=== PATIENT | female | born 1990 | race Caucasian/White ===

== ENCOUNTER 2019-03-29 13:01 | Inpatient (IN) | payer OTHER ==
[2019-03-29 16:16] VITALS: BMI 30.7
--- NOTE | 2019-03-29 17:24 | HP ---
CIWA Score Nausea/Vomitin-Mild Nausea/No Vomiting Muscle Tremors: 2 Anxiety: 3 Agitation: 3 Paroxysmal Sweats: No Perspiration Orientation: 0-Oriented Tacttile Disturbances: 0-None Auditory Disturbances: 0-None Visual Disturbances: 0-None Headache: 3-Moderate CIWA-Ar Total Score: 12 - Admission Criteria OASAS Guidelines: Admission for Medically Managed Detox: Requires at least one of the followin. CIWA greater than 12 2. Seizures within the past 24 hours 3. Delirium tremens within the past 24 hours 4. Hallucinations within the past 24 hours 5. Acute intervention needed for co occurring medical disorder 6. Acute intervention needed for co occurring psychiatric disorder 7. Severe withdrawal that cannot be handled at a lower level of care (continued vomiting, continued diarrhea, abnormal vital signs) requiring intravenous medication and/or fluids 8. Admission ROS [facility] Chief Complaint: detox from alcohol/xanax Allergies/Adverse Reactions: Allergies Allergy/AdvReac Type Severity Reaction Status Date / Time No Known Allergies Allergy Verified 03/29/19 15:44 History of Present Illness: 28 yo with h/o anxiety disorder under psychiatric care. Self referred after she has been binge drinking alcohol for the last 2 weeks- last drink was 2 days ago. Says she is feeling anxious/with headaches. Pt states she fell while she was intoxicated and has a bruise of R eye- seen in the ER, and was discharged without any medications. Pt states she was told that she did not have a fracture. We have a note from psych doc that he is aware of pts admission here and he agrees to detox pt off benzo (xanax) he will follow up at discharge. Pt has a h/ o seizures related to xanax alcohol- 1-2 bottles/day for 3-4 times a week- was drinking to relieve anxiety. Last drink 2 days ago. is prescribed xanax-3mg/day last on 03/04/19 adderall ~50mg/day last rec'd on 03/04/19 cocaine occ use Pt is admitted for benzo taper to f/u PCP at discharge - Ebola screening Have you traveled outside of the country in the last 21 days: No Have you had contact with anyone from an Ebola affected area: No Do you have a fever: No Patient History - Patient Medical History Hx Depression: Yes (anxiety, ADHD) - Patient Surgical History Other Surgical History: tonsillectomy - PPD History Documented Results: Negative w/o proof - Smoking Cessation Smoking history: Current every day smoker Have you smoked in the past 12 months: Yes Hx Chewing Tobacco Use: No Initiated information on smoking cessation: Yes 'Breaking Loose' booklet given: 03/29/19 - Substance & Tx. History Hx Alcohol Use: Yes Hx Substance Use: Yes Substance Use Type: Alcohol, Cocaine - Substances abused Alcohol Substance route: Oral Frequency: 3-6 times per week Amount used: 1-2 bottles wine Age of first use: 22 Date of last use: 03/27/19 Family Disease History - Family Disease History Family Disease History: Other: Father (alcohol) Admission Physical Exam [facility]HS - Vital Signs Vital Signs: Vital Signs - 24 hr 03/29/19 03/29/19 03/29/19 16:09 16:25 17:17 Temperature 98.4 F 98.4 F 98.4 F Pulse Rate 90 90 90 Respiratory 16 16 16 Rate Blood Pressure 134/90 134/90 134/90 - Physical General Appearance: Yes: Other (with bruise of R eye- wearing eye shades) HEENTM: Yes: Orbits (with bruise, no fracture of eye sockets) Respiratory: Yes: Within Normal Limits, Chest Non-Tender, Lungs Clear Neck: Yes: Within Normal Limits Cardiology: Yes: Within Normal Limits, Regular Rhythm, Regular Rate Abdominal: Yes: Within Normal Limits, Normal Bowel Sounds Genitourinary: Yes: Within Normal Limits Back: Yes: Within Normal Limits Musculoskeletal: Yes: Within Normal Limits, full range of Motion, Gait Steady Extremities: Yes: Within Normal Limits, Normal Capillary Refill Neurological: Yes: Within Normal Limits Integumentary: Yes: Within Normal Limits - Diagnostic (1) Anxiety Current Visit: Yes Status: Acute (2) Depression Current Visit: Yes Status: Acute (3) Cocaine use Current Visit: Yes Status: Acute (4) Black eye of right side Current Visit: Yes Status: Acute (5) Alcohol dependence, binge pattern Current Visit: Yes Status: Acute (6) Episode of binge consumption of alcohol Current Visit: Yes Status: Acute Breathalyzer - Breathalyzer Breathalyzer: 0 Urine Drug Screen - Test Device Lot number: [id number] Expiration date: 12/24/20 - Control Is test valid?: Yes - Results Drug screen NEGATIVE: No Urine drug screen results: RAMÍREZ-Cocaine, BZO-Benzodiazepines Inpatient Rehab Admission - Rehab Decision to Admit Inpatient rehab admission?: No
[2019-03-29] MEDS ORDERED: MAGNESIUM CITRATE 300 ML BOTTLE PO PRN (17:41)
[2019-03-29] MEDS ORDERED: ACETAMINOPHEN 325 MG TABLET (FP) PO PRN ×2 (17:41)
[2019-03-29] MEDS ORDERED: IBUPROFEN 400 MG TABLET (FP) PO PRN (17:41)
[2019-03-29] MEDS ORDERED: hydrOXYzine PAMOATE 25 MG CAPSULE (FP) PO PRN (17:41)
[2019-03-29] MEDS ORDERED: MAG HYDROX/AL HYDROX/SIMETH 30 ML UNIT-DOSE CUP PO PRN (17:41)
[2019-03-29] MEDS ORDERED: MAGNESIUM HYDROX 2400MG/30ML ORAL SUSPENSION 30 ML CUP PO PRN (17:41)
[2019-03-29] MEDS ORDERED: BISMUTH SUBSALICYLATE 524 MG/30 ML UD PO PRN (17:41)
[2019-03-29] MEDS ORDERED: MENTHOL/PHENOL 1 EACH UD MM PRN (17:41)
[2019-03-29] MEDS ORDERED: METHOCARBAMOL 500 MG TABLET PO PRN (17:41)
[2019-03-29] MEDS ORDERED: diazePAM 5 MG TABLET PO ONE (18:30)
[2019-03-29] MEDS ORDERED: NICOTINE POLACRILEX 2 MG GUM BUC PRN (19:20)
[2019-03-29] MEDS: diazePAM 5 MG TABLET PO SCH (22:00)
[2019-03-29] MEDS: THIAMINE HCL 100 MG TABLET (FP) PO SCH (22:00)
[2019-03-29] MEDS: MELATONIN 5 MG TABLETS PO PRN (23:03)
[2019-03-30] MEDS: diazePAM 5 MG TABLET PO PRN ×2 (01:05→18:08)
[2019-03-30] MEDS: diazePAM 5 MG TABLET PO SCH ×3 (05:46→21:08)
--- NOTE | 2019-03-30 09:20 | CONSULT ---
[facility] Psychiatric Consult - Data Date of interview: 03/30/19 [facility] Identifying data: Ms Trimble is a 28 years old single , unemployed with no source of income, living with her parents seeking detox treatment for alcohol and cocaine Substance Abuse History: Reports history of alcohol and cocaine use. Refer to addiction counselor's summary for further information Medical History: Significant for history of withdrawal seizure. Smokes cigarettes 1 ppd Psychiatric History: Reports that her first psychiatric contact was in Spring 2012 when she saw a private psychiatrist in [place], [place]. She was diagnosed with MDD and prescribed Paxil. Since then, she saw 3 different psychiatrists and ADHD was added as a diagnosis in 2013, She currently sees Clementina Pennington MD a private psychiatrist in [place] and she is prescribed Adderall XR 30 mg/day , Adderall 20 mg/bid prn, Zoloft 125 mg/day ans Xanax 1 mg/tid prn. Denies previous psychiatric hospitalization or suicidal attempt. At present, reports feeling anxious and sleeping poorly Physical/Sexual Abuse/Trauma History: Denies history of sexual abuse. Denies DV relationship Additional Comment: No criminal history Mental Status Exam - Mental Status Exam Alert and Oriented to: Time, Place, Person Cognitive Function: Fair Patient Appearance: Well Groomed Mood: Anxious Affect: Appropriate Patient Behavior: Cooperative Speech Pattern: Clear Voice Loudness: Normal Thought Process: Intact, Goal Oriented Thought Disorder: Not Present Hallucinations: Denies Suicidal Ideation: Denies Homicidal Ideation: Denies Insight/Judgement: Poor Sleep: Poorly Appetite: Good Muscle strength/Tone: Normal Gait/Station: Normal Psychiatric Findings - Problem List (Park 1, 2,3) (1) MDD (major depressive disorder) Current Visit: Yes Status: Chronic (2) ADHD (attention deficit hyperactivity disorder) Current Visit: Yes Status: Chronic (3) Substance-induced anxiety disorder Current Visit: Yes Status: Acute (4) Substance-induced sleep disorder Current Visit: Yes Status: Acute (5) Alcohol dependence, uncomplicated Current Visit: Yes Status: Acute (6) Cocaine dependence Current Visit: Yes Status: Acute - Initial Treatment Plan Initial Treatment Plan: 1) Continue Zoloft 125 mg po daily. 2) Start Belsomra 10 mg po HS prn for insomnia. 3) Continue inpatient detoxification
[2019-03-30] MEDS: PRENATAL VITAMINS W/ FOLIC ACID TABLET (FP) PO SCH (09:59)
[2019-03-30] MEDS: NICOTINE 7 MG/24 HOURS TOPICAL PATCH TD SCH (09:59)
[2019-03-30] MEDS ORDERED: SERTRALINE HCL 125 MG PO SCH (10:00)
[2019-03-30] MEDS ORDERED: SERTRALINE HCL 100 MG, SERTRALINE HCL 25 MG PO SCH (10:00)
[2019-03-30] MEDS ORDERED: SERTRALINE HCL 25 MG TABLET (FP) PO SCH (10:00)
[2019-03-30] MEDS: SERTRALINE HCL 100 MG, SERTRALINE HCL 25 MG PO SCH (10:09)
[2019-03-30 12:22] LABS: ALBUMIN 3.8 g/dl (3.4-5.0); BILIRUBIN,TOTAL 0.4 mg/dL (0.2-1); BLOOD UREA NITROGEN 12.2 mg/dL (7-18); CALCIUM 9.6 mg/dL (8.5-10.1); TOT PROT 7.3 g/dl (6.4-8.2)
[2019-03-30 12:24] LABS: HEMATOCRIT 37.5 % (32.4-45.2); HEMOGLOBIN 12.7 GM/dL (10.7-15.3); MCH 31.6 pg (25.7-33.7); MEAN CELL VOLUME 92.8 fl (80-96); MEAN PLT VOLUME 9.2 fl (7.5-11.1); PLATELET COUNT 173 K/MM3 (134-434); RBC 4.04 M/mm3 (3.60-5.2); RDW 14.2 % (11.6-15.6); WHITE BLOOD COUNT 4.8 K/mm3 (4.0-10.0)
--- NOTE | 2019-03-30 14:39 | PN ---
S CIWA - CIWA Score Nausea/Vomitin-No Nausea/No Vomiting Muscle Tremors: 2 Anxiety: 2 Agitation: 3 Paroxysmal Sweats: 2 Orientation: 0-Oriented Tacttile Disturbances: 0-None Auditory Disturbances: 0-None Visual Disturbances: 0-None Headache: 0-None Present CIWA-Ar Total Score: 9 BHS Progress Note (SOAP) Subjective: sweats shakes interrupted sleep body aches Objective: 03/30/19 14:34 Vital Signs Temperature 98.2 F 03/30/19 13:11 Pulse Rate 83 03/30/19 13:11 Respiratory Rate 18 03/30/19 13:11 Blood Pressure 129/65 03/30/19 13:11 O2 Sat by Pulse Oximetry (%) Laboratory Tests 03/29/19 03/30/19 03/30/19 17:18 08:30 08:30 WBC 4.8 RBC 4.04 Hgb 12.7 Hct 37.5 MCV 92.8 MCH 31.6 MCHC 34.0 RDW 14.2 Plt Count 173 MPV 9.2 Sodium 137 Potassium 4.0 Chloride 102 Carbon Dioxide 29 Anion Gap 6 L BUN 12.2 Creatinine 1.0 Est GFR (CKD-EPI)AfAm 87.55 Est GFR (CKD-EPI)NonAf 75.54 Random Glucose 78 Calcium 9.6 Total Bilirubin 0.4 AST 540 H ALT 240 H Alkaline Phosphatase 80 Total Protein 7.3 Albumin 3.8 POC Urine HCG, Qual Negative RPR Titer 03/30/19 08:30 WBC RBC Hgb Hct MCV MCH MCHC RDW Plt Count MPV Sodium Potassium Chloride Carbon Dioxide Anion Gap BUN Creatinine Est GFR (CKD-EPI)AfAm Est GFR (CKD-EPI)NonAf Random Glucose Calcium Total Bilirubin AST ALT Alkaline Phosphatase Total Protein Albumin POC Urine HCG, Qual RPR Titer Nonreactive labs noted elevated ast/alt encourage fluids repeat labs Assessment: 03/30/19 14:39 withdrawal sx Plan: continue detox increase fluids f/u repeated labs
[2019-03-30] MEDS: THIAMINE HCL 100 MG TABLET (FP) PO SCH (21:08)
[2019-03-30] MEDS ORDERED: SUVOREXANT 10 MG TABLET PO PRN (22:00)
[2019-03-30] MEDS: MELATONIN 5 MG TABLETS PO PRN (22:43)
[2019-03-31] MEDS ORDERED: diazePAM 5 MG TABLET PO SCH (06:00)
[2019-03-31 09:28] VITALS: BP 119/54; PULSE 100; TEMP 97.7
[2019-03-31] MEDS: SERTRALINE HCL 100 MG, SERTRALINE HCL 25 MG PO SCH (10:46)
[2019-03-31] MEDS: PRENATAL VITAMINS W/ FOLIC ACID TABLET (FP) PO SCH (10:47)
[2019-03-31] MEDS: NICOTINE 7 MG/24 HOURS TOPICAL PATCH TD SCH (10:47)
--- NOTE | 2019-03-31 11:54 | PN ---
[facility] CIWA - CIWA Score Nausea/Vomitin-No Nausea/No Vomiting Muscle Tremors: 2 Anxiety: 1-Mildly Anxious Agitation: 1-Slight > Activity Paroxysmal Sweats: 1-Minimal Palms Moist Orientation: 0-Oriented Tacttile Disturbances: 0-None Auditory Disturbances: 0-None Visual Disturbances: 0-None Headache: 0-None Present CIWA-Ar Total Score: 5 BHS Progress Note (SOAP) Subjective: anxiety restless interrupted sleep Objective: 03/31/19 11:53 Vital Signs Temperature 97.7 F 03/31/19 09:28 Pulse Rate 100 H 03/31/19 09:28 Respiratory Rate 18 03/31/19 09:28 Blood Pressure 119/54 L 03/31/19 09:28 O2 Sat by Pulse Oximetry (%) Laboratory Tests 03/29/19 03/30/19 03/30/19 17:18 08:30 08:30 WBC 4.8 RBC 4.04 Hgb 12.7 Hct 37.5 MCV 92.8 MCH 31.6 MCHC 34.0 RDW 14.2 Plt Count 173 MPV 9.2 Sodium 137 Potassium 4.0 Chloride 102 Carbon Dioxide 29 Anion Gap 6 L BUN 12.2 Creatinine 1.0 Est GFR (CKD-EPI)AfAm 87.55 Est GFR (CKD-EPI)NonAf 75.54 Random Glucose 78 Calcium 9.6 Total Bilirubin 0.4 AST 540 H ALT 240 H Alkaline Phosphatase 80 Total Protein 7.3 Albumin 3.8 POC Urine HCG, Qual Negative RPR Titer 03/30/19 08:30 WBC RBC Hgb Hct MCV MCH MCHC RDW Plt Count MPV Sodium Potassium Chloride Carbon Dioxide Anion Gap BUN Creatinine Est GFR (CKD-EPI)AfAm Est GFR (CKD-EPI)NonAf Random Glucose Calcium Total Bilirubin AST ALT Alkaline Phosphatase Total Protein Albumin POC Urine HCG, Qual RPR Titer Nonreactive pending repeated labs [id number] ambulating no acute distress Assessment: 03/31/19 11:54 mild withdrawal sx Plan: continue detox increase fluids pending labs
[2019-03-31 12:24] LABS: SGOT/AST 306 U/L (15-37); SGPT/ALT 208 U/L (13-61)
[2019-03-31 12:57] LABS: INR 1.04 (0.83-1.09); PROTHROMBIN TIME (PATIENT) 12.3 SEC (9.7-13.0)
[2019-04-01] MEDS ORDERED: diazePAM 5 MG TABLET PO ONE (06:00)
== END 2019-03-31 12:59 | disposition left against medical advice (07) | DRG 770 ==
LOC: YASAS 13:01 → Y6N 18:08
PROVIDERS: ADMIT Surgery; ATTEND Surgery
PROC: HZ2ZZZZ Detoxification Services for Substance Abuse Treatment (ICD-10-PCS; principal; 2019-03-29)
DX: F10.230 Alcohol dependence with withdrawal, uncomplicated (principal); F13.20 Sedative, hypnotic or anxiolytic dependence, uncomplicated; F14.20 Cocaine dependence, uncomplicated; F19.280 Other psychoactive substance dependence with psychoactive substance-induced anxiety disorder; F19.282 Other psychoactive substance dependence with psychoactive substance-induced sleep disorder; F32.9 Major depressive disorder, single episode, unspecified; F90.9 Attention-deficit hyperactivity disorder, unspecified type; S00.11XA Contusion of right eyelid and periocular area, initial encounter; X58.XXXA Exposure to other specified factors, initial encounter; Y93.89 Activity, other specified; Y92.89 Other specified places as the place of occurrence of the external cause; Y99.8 Other external cause status
CPT/HCPCS: 36415; 80053; 81025; 84450; 84460; 85027; 85610; 86480; 86593